=== PATIENT | female | born 1960 | race Hispanic/Latino ===

== ENCOUNTER → 2017-11-22 | Outpatient (CLI) | payer BC ==
[~2017-11-22] MED LIST: LEVO175T9 PO; SIMV20TA6 PO
== END | disposition home or self-care (01) ==
LOC: RAH 12:44
PROVIDERS: ATTEND Internal Medicine
DX: Z12.31 Encounter for screening mammogram for malignant neoplasm of breast (principal)
CPT/HCPCS: 77067

== ENCOUNTER → 2018-11-23 | Outpatient (CLI) | payer BC | END | disposition home or self-care (01) | LOC: RAH 08:36 | PROVIDERS: ATTEND Internal Medicine | DX: Z12.31 Encounter for screening mammogram for malignant neoplasm of breast (principal) | CPT/HCPCS: 77067 ==

== ENCOUNTER → 2019-12-01 | Outpatient (CLI) | payer BC ==
[~2019-12-01] MED LIST changes: +SIMV-43 PO; -SIMV20TA6 PO
== END | disposition home or self-care (01) ==
LOC: RAH 12:55
PROVIDERS: ATTEND Internal Medicine
DX: Z12.31 Encounter for screening mammogram for malignant neoplasm of breast (principal)
CPT/HCPCS: 77067

== ENCOUNTER → 2020-12-02 | Outpatient (CLI) | payer BC | END | disposition home or self-care (01) | LOC: RAH 12:42 | PROVIDERS: ATTEND Internal Medicine | DX: Z12.31 Encounter for screening mammogram for malignant neoplasm of breast (principal) | CPT/HCPCS: 77067 ==

== ENCOUNTER → 2022-01-14 | Outpatient (CLI) | payer BC ==
[~2022-01-14] MED LIST changes: +ACET-2079 PO; +ASPI-1197 PO; +CELE-84 PO; +DULO60CA64 PO; +LEVO150C4 PO; -LEVO175T9 PO; +ROSU5TAB12 PO; -SIMV-43 PO
== END | disposition home or self-care (01) ==
LOC: RAH 09:01
PROVIDERS: ATTEND Internal Medicine
DX: Z12.31 Encounter for screening mammogram for malignant neoplasm of breast (principal)
CPT/HCPCS: 77067

== ENCOUNTER 2023-06-25 21:51 | Emergency (ER) | payer BC ==
[~2023-06-25] VITALS: Ht 165.1 cm; Wt 91.6 kg
[~2023-06-25 21:51] MED LIST changes: -ACET-2079 PO; -ASPI-1197 PO; -CELE-84 PO; -DULO60CA64 PO; +GABA300C PO; -LEVO150C4 PO; +LEVO175C2 PO; -ROSU5TAB12 PO
[2023-06-25 23:20] LABS: BASOPHILS # (AUTO) 0.06 K/uL (0.00-0.20); BASOPHILS % (AUTO) 0.8 % (0.0-5.0); EOSINOPHILS # (AUTO) 0.19 K/uL (0.00-0.70); EOSINOPHILS % (AUTO) 2.6 % (0.0-8.0); HEMATOCRIT 41.2 % (36-48); IMMATURE GRANULOCYTE ABSOLUTE 0.02 K/uL (0-1); LYMPHOCYTES # (AUTO) 1.4 K/uL (1.0-4.8); LYMPHOCYTES % (AUTO) 18.6 % (21.0-51.0); MEAN CORPUSCULAR HGB CONC 33.7 g/dL (32.0-36.0); MONOCYTES # (AUTO) 0.7 K/uL (0.1-1.0); MONOCYTES % (AUTO) 9.2 % (3.0-13.0); NEUTROPHILS % (AUTO) 68.5 % (40.0-77.0); PLATELET COUNT (AUTO) 328 K/uL (130-400); RED BLOOD CELL COUNT(AUTO) 4.48 MIL/uL (4.00-5.50); RED CELL DISTRIBUTION WIDTH 12.1 % (11.0-15.5); WHITE BLOOD COUNT (AUTO) 7.3 K/uL (4.8-10.8)
[2023-06-25 23:30] LABS: CREATININE 0.7 mg/dL (0.5-1.5); POTASSIUM 3.8 mmol/L (3.5-5.1)
[2023-06-25 23:35] LABS: ALBUMIN 3.5 g/dL (3.5-5.0); BILIRUBIN,TOTAL 0.4 mg/dL (0.2-1.0); TOTAL PROTEIN, SERUM 7.5 g/dL (6.0-8.3)
[2023-06-26 00:15] LABS: APPEARANCE,URINE CLEAR (CLEAR); BILIRUBIN,URINE NEGATIVE (NEGATIVE); COLOR,URINE LIGHT-YELLOW (YELLOW); GLUCOSE, URINE (UA) NEGATIVE (NEGATIVE); KETONES,URINE NEGATIVE (NEGATIVE); LEUKOCYTE ESTERASE ,URINE NEGATIVE Leu/uL (NEGATIVE); NITRATE,URINE NEGATIVE (NEGATIVE); OCCULT BLOOD,URINE SMALL (NEGATIVE); PH,URINE 5.5 (5.0-8.0); PROTEIN,URINE NEGATIVE (NEGATIVE); UROBILINOGEN,URINE 0.2 mg/dL (0.2-1.0)
[2023-06-26 00:19] LABS: ADD UA MICROSCOPIC YES
[2023-06-26 00:24] LABS: MUCUS,URINE RARE LPF (None Seen); SQUAMOUS EPITHELIAL CELL,UR RARE /HPF (0-2)
[2023-06-26 00:46] LABS: YEAST,URINE BUDDING None Seen /HPF (None Seen)
[2023-06-26] MEDS ORDERED: 0.9%NACL 1000ML 1,140 ML IV ONE (01:00)
[2023-06-26] MEDS ORDERED: KETOROLAC 60 MG VIAL (30MG/ML) IM ONE (01:00)
[2023-06-26] MEDS ORDERED: ONDANSETRON 4MG INJ IVP ONE (01:00)
[2023-06-26] MEDS ORDERED: MORPHINE 4 MG SYG IVP ONE (01:00)
[2023-06-26] MEDS ORDERED: PROCHLORPERAZINE 10MG/2ML INJ IV ONE (01:00)
[2023-06-26 02:19] VITALS: BP 114/59; PULSE 70; RESP 16; O2SAT 97
[2023-06-26] MEDS ORDERED: CEPH500C2 PO (02:30)
[2023-06-26] MEDS ORDERED: ACET-2079 PO (02:30)
== END 2023-06-26 02:49 | disposition home or self-care (01) ==
LOC: EDH 21:51
DX: N23 Unspecified renal colic (principal); N20.9 Urinary calculus, unspecified; E03.9 Hypothyroidism, unspecified; M19.90 Unspecified osteoarthritis, unspecified site; Z88.8 Allergy status to other drugs, medicaments and biological substances; Z96.653 Presence of artificial knee joint, bilateral
CPT/HCPCS: 99284; 84484; 80053; 83690; 85025; 81001; 36415; 74176; 96374; 96361; 96375; 96372; J7030; J0780; J2405; J2270; J1885

== ENCOUNTER → 2023-12-09 | Outpatient (CLI) | payer BC ==
[~2023-12-09] MED LIST changes: +ACET-2079 PO; +CEPH500C2 PO
== END | disposition home or self-care (01) ==
LOC: RAH 14:25
PROVIDERS: ATTEND Internal Medicine
DX: R22.42 Localized swelling, mass and lump, left lower limb (principal)
CPT/HCPCS: 93971

== ENCOUNTER → 2024-01-31 | Outpatient (CLI) | payer BC | END | disposition home or self-care (01) | LOC: RAH 14:28 | PROVIDERS: ATTEND Internal Medicine | DX: Z12.31 Encounter for screening mammogram for malignant neoplasm of breast (principal); R92.323 Mammographic fibroglandular density, bilateral breasts | CPT/HCPCS: 77067 ==

== ENCOUNTER → 2024-06-08 | Outpatient (CLI) | payer BC | END | disposition home or self-care (01) | LOC: RAH 12:29 | PROVIDERS: ATTEND Internal Medicine | DX: I35.1 Nonrheumatic aortic (valve) insufficiency (principal); R22.42 Localized swelling, mass and lump, left lower limb | CPT/HCPCS: 93306 ==

== ENCOUNTER → 2024-11-23 | Outpatient (CLI) | payer BC ==
--- NOTE | 2024-11-29 21:39 | HMCSR ---
APPROVED REPORT Bilateral Lower Extremity Venous Study for DVT., Venous Competence. Indications i73.9 Vein Imaging CFV (R): Normal flow, augmentation and compression. No evidence of DVT. 12.1mm 1078ms of reflux. SFJ (R): Normal flow, augmentation and compression. No evidence of DVT. FEM (R): Normal flow, augmentation and compression. No evidence of DVT. POP (R): Normal flow, augmentation and compression. No evidence of DVT. DFV (R): Normal flow, augmentation and compression. No evidence of DVT. PTV (R): Normal flow, augmentation and compression. No evidence of DVT. Peroneals (R): Normal flow, augmentation and compression. No evidence of DVT. CFV (L): Normal flow, augmentation and compression. No evidence of DVT. 13.3mm 1094ms SFJ (L): Normal flow, augmentation and compression. No evidence of DVT. FEM (L): Normal flow, augmentation and compression. No evidence of DVT. POP (L): Normal flow, augmentation and compression. No evidence of DVT. DFV (L): Normal flow, augmentation and compression. No evidence of DVT. PTV (L): Normal flow, augmentation and compression. No evidence of DVT. Peroneals (L): Normal flow, augmentation and compression. No evidence of DVT. Technologist Impression Deep veins of bilateral lower extremities appear patent and compressible without thrombus. Deep vein reflux seen in RCFV & LCFV Superficial venous insufficiency seen in the RGSV RGSV junction 7.1mm 606ms thigh 2.6mm 0.0ms knee 2.8mm 0.0ms calf 2.3mm 0.0ms RSSV Prox 1.7mm 0.0ms Mid 2.1mm 0.0ms LGSV junction 4.4mm 0.0ms thigh 3.1mm 0.0ms knee 2.3mm 367ms calf 1.9mm 433ms LSSV Prox 1.6mm 0.0ms Mid 1.8mm 0.0ms Conclusion Deep vein reflux seen in RCFV & LCFV Superficial venous insufficiency seen in the RGSV Iliac vein compression is suspected Clinical correlation recommended Conclusion Deep vein reflux seen in RCFV & LCFV Superficial venous insufficiency seen in the RGSV Iliac vein compression is suspected Clinical correlation recommended
--- NOTE | 2024-11-29 21:41 | HMCSR ---
APPROVED REPORT Laterality: Bilateral Indications I73.9 VELOCITY AND DOPPLER WAVEFORM ANALYSIS CERTIFIED CAREGIVER (R) 94.2cm/sec, Triphasic, CERTIFIED CAREGIVER (L) 96.0cm/sec, Triphasic, Prof Fem Art. (R) 61.4cm/sec, Triphasic, Prof Fem Art. (L) 77.2cm/sec, Biphasic, Fem Art Prox. (R) 122.7cm/sec, Triphasic, Fem Art Prox. (L) 94.2cm/sec, Triphasic, Fem Art Mid. (R) 94.2cm/sec, Triphasic, Fem Art Mid. (L) 103.0cm/sec, Triphasic, Fem Art Dist (R) 75.0cm/sec, Triphasic, Fem Art Dist. (L) 97.8cm/sec, Triphasic, Pop Art(AK) (R) 89.7cm/sec, Triphasic, Pop Art (AK) (L) 47.7cm/sec, Triphasic, Pop Art (Fossa)(R) 78.5cm/sec, Triphasic, Pop Art (Fossa) (L) 60.0cm/sec, Biphasic, Pop Art(BK) (R) 79.9cm/sec, Triphasic, Pop Art (BK) (L) 72.6cm/sec, Biphasic, MANAGER SPEECH Dist. (R) 96.1cm/sec, Triphasic, MANAGER SPEECH Dist. (L) 62.8cm/sec, Biphasic, Per Art Dist. (R) 28.0cm/sec, Biphasic, Per Art Dist. (L) 35.0cm/sec, Biphasic, ANDRES Dist. (R) 80.8cm/sec, Biphasic, ANDRES Dist. (L) 79.9cm/sec, Biphasic, Technologist Impression No evidence of significant arterial insufficiency of bilateral lower extremities. Multiphasic waveforms seen in bilateral lower extremities. Conclusion No evidence of significant arterial insufficiency of bilateral lower extremities. Conclusion No evidence of significant arterial insufficiency of bilateral lower extremities.
== END | disposition home or self-care (01) ==
LOC: SHCH 13:39
PROVIDERS: ATTEND Internal Medicine Cardiovascular Disease
DX: I87.2 Venous insufficiency (chronic) (peripheral) (principal); I73.9 Peripheral vascular disease, unspecified
CPT/HCPCS: 93925; 93970

== ENCOUNTER → 2024-11-24 | Outpatient (CLI) | payer BC ==
[2024-11-24] MEDS: REGADENOSON 0.4 MG/5 ML PF SYG IVP ONE (14:36)
== END | disposition home or self-care (01) ==
LOC: SHCH 07:47
PROVIDERS: ATTEND Internal Medicine Cardiovascular Disease
DX: R94.39 Abnormal result of other cardiovascular function study (principal); R06.09 Other forms of dyspnea
CPT/HCPCS: 78452; 93017; J2785; A9500 ×2

== ENCOUNTER → 2025-02-06 | Outpatient (CLI) | payer BC ==
[~2025-02-06] MED LIST changes: -LEVO175C2 PO; +LEVO175C3 PO
--- NOTE | 2025-02-07 09:31 | HMCIMG ---
MAMMO SCREENING BILATERAL HISTORY: Screening mammogram. COMPARISON: 01/31/2024 TECHNIQUE: Bilateral screening mammogram with CAD was performed with craniocaudal and mediolateral oblique projections. FINDINGS: There are scattered areas of fibroglandular density. There is no evidence of a dominant mass, or suspicious microcalcification. There is no evidence of nipple retraction or skin thickening. IMPRESSION: 1. Stable mammogram. Patient was entered into a reminder system with a target due date for their next mammogram. BI-RADS: CATEGORY 2: BENIGN FINDINGS Recommend monthly self breast exam as well as annual clinical examination. A negative x-ray should not delay biopsy if a dominant or clinically suspicious mass is present, since 8-10% of cancers are not identified by mammography. Dense breasts particularly, may obscure an underlying neoplasm. Some of these may be detected clinically and therefore, clinical examination is an essential part of breast evaluation.
== END | disposition home or self-care (01) ==
LOC: RAH 13:43
PROVIDERS: ATTEND Internal Medicine
DX: Z12.31 Encounter for screening mammogram for malignant neoplasm of breast (principal); R92.323 Mammographic fibroglandular density, bilateral breasts
CPT/HCPCS: 77067